=== PATIENT | male | born 1990 | race American Indian/Alaskan Native ===

== ENCOUNTER 2018-12-21 14:52 | Emergency (ER) | payer OTHER ==
--- NOTE | 2018-12-21 15:35 | Emergency Department Report ---
Blank Doc - Documentation Documentation: This is a 28-year-old male that presents with abdomiunal pain with n/v. Stated also has some slight headache but stated is worsened when vomiting. Patient is neurologically stable. A/Ox3. Normal neuro exam. This initial assessment/diagnostic orders/clinical plan/treatment(s) is/are subject to change based on patient's health status, clinical progression and re- assessment by fellow clinical providers in the ED. Further treatment and workup at subsequent clinical providers discretion. Patient/guardians urged not to elope from the ED as their condition may be serious if not clinically assessed and managed. Initial orders include: 1- Patient sent to [facility] for further evaluation and treatment 2- labs
[2018-12-21 15:37] VITALS: BP 125/78
[2018-12-21 16:23] LABS: Basophils % (Auto) 0.2 % (0.0-1.8); Eosinophils % (Auto) 0.5 % (0.0-4.3); Hematocrit 45.1 % (35.5-45.6); Hemoglobin 14.3 gm/dl (11.8-15.2); Lymphocytes # (Auto) 1.5 K/mm3 (1.2-5.4); Mean Corpuscular HGB Conc 32 % (32-34); Mean Corpuscular Volume 74 fl (84-94); Monocytes # (Auto) 0.5 K/mm3 (0.0-0.8); Monocytes % (Auto) 7.6 % (0.0-7.3); Platelet Count 213 K/mm3 (140-440); Red Blood Count 6.11 M/mm3 (3.65-5.03)
[2018-12-21 16:55] LABS: Alanine Aminotransferase 9 units/L (7-56); Albumin 4.6 g/dL (3.9-5); BUN/Creatinine Ratio 14; Blood Urea Nitrogen 17 mg/dL (9-20); Calcium 9.2 mg/dL (8.4-10.2); Hemolysis Index 6
[2018-12-21 17:10] LABS: Bilirubin,Direct < 0.2 mg/dL (0-0.2)
== END 2018-12-21 18:55 | disposition left against medical advice (07) ==
LOC: ED 14:52
DX: R10.9 Unspecified abdominal pain (principal); Z53.21 Procedure and treatment not carried out due to patient leaving prior to being seen by health care provider
CPT/HCPCS: 36415; 80048; 80076; 83690; 85025